=== PATIENT | female | born 1960 | race Caucasian/White ===

== ENCOUNTER 2019-01-06 11:49 | Outpatient (CLI) | payer OTHER ==
--- NOTE | 2019-01-06 12:53 | RAD ---
RIGHT FOOT 3 VIEWS: DATE: 01/06/2019. FINDINGS: Prominent hallux valgus is present. No acute fracture, bony erosion, or dislocation was seen. There is evidence of an old healed injury to the distal 2nd metatarsal. A large calcaneal spur was seen. IMPRESSION: Chronic changes, but no acute finding. POS: HOME
== END 2019-01-06 11:50 | disposition home or self-care (01) ==
LOC: BURRAD 11:49
PROVIDERS: ATTEND Nurse Practitioner Family
DX: M79.674 Pain in right toe(s) (principal)

== ENCOUNTER 2019-04-18 11:18 | Outpatient (CLI) | payer OTHER ==
--- NOTE | 2019-04-19 07:42 | ULT ---
LEFT SUPRACLAVICULAR ULTRASOUND: 04/18/2019 HISTORY: Ultrasonography of the left supraclavicular region was done for evaluation of palpable abnormalities. FINDINGS: There are multiple hypoechoic structures that appear to be lymph nodes. The largest measures 2 cm in diameter. IMPRESSION: Several enlarged supraclavicular nodes on the left side. While the ultrasonographic findings are nons pecific, it brings to mind that the lymphatic drainage of the abdomen is sometimes responsible for en largement of nodes in this point (so called Virchow's nodes). Sometimes abdominal pathology can sprea d in such a fashion. Lymphoproliferative diseases would be in the differential, as well as infection for any reason. Further studies would be needed to determine if the lymph node enlargement was of trina e significance or not. POS: HOME
== END 2019-04-18 11:19 | disposition home or self-care (01) ==
LOC: BURULT 11:18
PROVIDERS: ATTEND Nurse Practitioner Family
DX: R22.2 Localized swelling, mass and lump, trunk (principal)
CPT/HCPCS: 76536

== ENCOUNTER 2019-05-12 09:41 | Outpatient (CLI) | payer OTHER ==
[2019-05-12] MEDS ORDERED: Iopamidol 370 76% 100 ML VIAL ONE (16:13)
--- NOTE | 2019-05-12 18:24 | CT ---
CT OF THE CHEST WITH CONTRAST: 05/12/[address] of the chest was performed for evaluation of enlargement of supraclavicular nodes, particul gaetano on the left side. Axial slices were acquired after giving IV contrast followed by coronal and sa gittal reconstructions. There is a large mass in the left upper lobe measuring about 9.3 x 5.7 cm. There is pneumonitis surro unding the mass. In addition, there are several mass densities present in the right lung, the larges t measuring 3.7 cm in the right upper lobe. There are no effusions. Enlarged nodes are seen in the ao rticopulmonary window measuring up to 2.2 cm in size and thee is alarge left supraclavicular node (Vi rchow's node) measuring 3.0 x 1.8 cm. All of these findings are suggestive of metastatic disease. Sta tistically speaking, the most likely primary would come from the GI tract. Breast would also be a com mon source, though I see no large masses in the breast parenchyma on this study. An incidental finding is a 7 mm hypolucent nodule in the left lobe of the thyroid gland, probably unr elated to the above process. No bony destructive lesions were seen in the vertebrae, though there are degenerative changes seen, particularly in the low cervical regions. The scans go a short ways into the upper abdomen. The visible portions of the liver showed no masses. The adrenal glands are not shown completely. The spleen seems normal in size. IMPRESSION: 1. Bilateral pulmonary masses, largest on the left. Enlargement of Virchow's node and nodes in t he aorticopulmonary window. The findings strongly suggest metastatic disease, with a GI tract primary being the more likely source than not. 2. 7 mm hypolucent nodule in the left lobe of the thyroid gland. Findings discussed with Malina Rajput at 1415 on 05/12/19. POS: HOME
== END 2019-05-12 09:42 | disposition home or self-care (01) ==
LOC: BURCT 09:41
PROVIDERS: ATTEND Nurse Practitioner Family
DX: R59.0 Localized enlarged lymph nodes (principal); R91.8 Other nonspecific abnormal finding of lung field; E04.1 Nontoxic single thyroid nodule
CPT/HCPCS: 71260; Q9967